=== PATIENT | male | born 1965 | race Caucasian/White ===

== ENCOUNTER 2020-03-18 13:42 | Inpatient (IN) | payer OTHER ==
[2020-03-18 14:03] VITALS: BMI 28.3
[2020-03-18] MEDS ORDERED: SODIUM CHLORIDE 0.9% 500 ML INFUS.BAG IV ONE (14:09)
[2020-03-18 14:48] LABS: ALBUMIN 4.2 g/dl (3.4-5.0); BILIRUBIN,TOTAL 0.7 mg/dl (0.2-1); CALCIUM 8.9 mg/dl (8.5-10); CREATININE 0.8 mg/dl (0.55-1.3); POTASSIUM 3.8 mmol/L (3.5-5.1); TOT PROT 7.5 g/dl (6.4-8.2)
[2020-03-18 15:36] LABS: INR 1.1 (0.82-1.09); PROTHROMBIN TIME (PATIENT) 12.2 SEC (10.2-13.0)
[2020-03-18 15:37] LABS: HEMATOCRIT 46.9 % (35.4-49); HEMOGLOBIN 15.6 GM/dL (11.7-16.9); MCH 31.9 pg (25.7-33.7); MCHC 33.4 g/dl (32.0-35.9); MEAN CELL VOLUME 95.7 fl (80-96); WHITE BLOOD COUNT 5.9 K/mm3 (4.0-10.0)
[2020-03-18 15:38] LABS: BASO % 0.3 % (0-2.0); EOS % 1.7 % (0-4.5); LYMPH % 27.2 % (8-40); NEUT % 59.8 % (42.8-82.8); PLATELET COUNT 208 K/MM3 (134-434); RDW 14.4 % (11.9-15.9)
[2020-03-18 18:46] LABS: BASO % 0.4 % (0-2.0); EOS % 0.8 % (0-4.5); HEMATOCRIT 40.1 % (35.4-49); HEMOGLOBIN 13.9 GM/dl (11.7-16.9); LYMPH % 16.7 % (8-40); MCHC 34.7 g/dl (32.0-35.9); MEAN CELL VOLUME 95.1 fl (80-96); MEAN PLT VOLUME 8.8 fl (7.5-11.1); MONO % 4.5 % (3.8-10.2); NEUT % 77.6 % (42.8-82.8); PLATELET COUNT 198 K/MM3 (134-434); RBC 4.21 M/mm3 (4.00-5.60); RDW 13.4 % (11.9-15.9); WHITE BLOOD COUNT 7.2 K/mm3 (4.0-10.8)
[2020-03-18 23:45] LABS: HEMATOCRIT 42.3 % (35.4-49); HEMOGLOBIN 14.4 GM/dl (11.7-16.9); MCH 32.6 pg (25.7-33.7); MCHC 34.1 g/dl (32.0-35.9); MEAN CELL VOLUME 95.8 fl (80-96); MEAN PLT VOLUME 8.5 fl (7.5-11.1); PLATELET COUNT 188 K/MM3 (134-434); RBC 4.41 M/mm3 (4.00-5.60); RDW 13.6 % (11.9-15.9); WHITE BLOOD COUNT 6.6 K/mm3 (4.0-10.8)
[2020-03-19 08:25] LABS: HEMATOCRIT 42.5 % (35.4-49); HEMOGLOBIN 14.4 GM/dl (11.7-16.9); MCH 32.5 pg (25.7-33.7); MCHC 33.8 g/dl (32.0-35.9); MEAN PLT VOLUME 8.6 fl (7.5-11.1); PLATELET COUNT 210 K/MM3 (134-434); RBC 4.43 M/mm3 (4.00-5.60); RDW 13.7 % (11.9-15.9); WHITE BLOOD COUNT 5.2 K/mm3 (4.0-10.8)
[2020-03-19] MEDS ORDERED: LACTATED RINGERS SOLUTION 1,000 ML/1,000 ML INFUS.BAG IV SCH (09:15)
[2020-03-19] MEDS ORDERED: PATIENT'S OWN MEDICATION (NON-FORMULARY) (Ferrous Sulfate [Ferrous Sulfate] 325 MG Tablet) PO SCH (10:00)
[2020-03-19] MEDS ORDERED: DOCUSATE SODIUM 100 MG CAPSULE (FP) PO SCH (10:00)
[2020-03-19] MEDS ORDERED: FERROUS SO4 325 MG TABLET (FP) PO SCH (10:00)
[2020-03-19 14:42] VITALS: BP 127/83; PULSE 66; TEMP 97.7
== END 2020-03-19 16:30 | disposition home or self-care (01) | DRG 254 ==
LOC: FER 13:42 → FM/S 18:55
PROVIDERS: ADMIT Internal Medicine; ATTEND Nurse Practitioner Acute Care
DX: K64.8 Other hemorrhoids (principal); K62.5 Hemorrhage of anus and rectum; K76.0 Fatty (change of) liver, not elsewhere classified
CPT/HCPCS: 36415; 74177-TC; 80053; 81003; 82272; 85025; 85027; 85610; 86850; 86900; 86901; 87086; 99285-25; C9803; Q9967; U0003

== ENCOUNTER 2020-08-22 09:25 | Emergency (ER) | payer OTHER ==
[2020-08-22 09:34] VITALS: BP 151/82; PULSE 84; TEMP 97.9; BMI 31.7
[2020-08-22] MEDS ORDERED: LACTULOSE 20 GM/30 ML UDC (FOR ORAL USE ONLY) PO ONE (10:21)
[2020-08-22] MEDS ORDERED: LACTULOSE 20 GM/30 ML UDC (FOR ORAL USE ONLY) ONE (10:27)
== END 2020-08-22 10:50 | disposition home or self-care (01) ==
LOC: FER 09:25
DX: K59.09 Other constipation (principal)
CPT/HCPCS: 99283-25

== ENCOUNTER 2022-08-10 07:30 | Emergency (ER) | payer OTHER ==
[2022-08-10 08:01] VITALS: BP 143/89; PULSE 58; RESP 18; TEMP 97.9; BMI 30.2
[2022-08-10] MEDS ORDERED: IBUPROFEN 600 MG TABLET (FP) PO ONE (08:23)
[2022-08-10] MEDS ORDERED: LIDOCAINE 5% TOPICAL PATCH TP ONE (08:23)
[2022-08-10] MEDS ORDERED: IBUPROFEN 400 MG TABLET (FP) PO ONE (08:24)
[2022-08-10] MEDS ORDERED: LIDOCAINE 5% TOPICAL PATCH ONE (08:24)
[2022-08-10] MEDS ORDERED: LIDOCAINE PATCH REMOVAL MC SCH (22:00)
== END 2022-08-10 09:09 | disposition home or self-care (01) ==
LOC: FER 07:30
DX: M54.50 Low back pain, unspecified (principal); R35.0 Frequency of micturition; R00.1 Bradycardia, unspecified
CPT/HCPCS: 76775-TC; 81003; 82962; 87086; 99284-25